=== PATIENT | female | born 1975 | race African-American/Black ===

== ENCOUNTER 2016-11-28 15:53 | Emergency (ER) | payer SELFPAY ==
[~2016-11-28] VITALS: Ht 175.3 cm; Wt 85.9 kg
[2016-11-28 20:09] VITALS: BP 127/84
== END 2016-11-28 20:11 | disposition home or self-care (01) ==
LOC: EMS 15:55
DX: S13.4XXA Sprain of ligaments of cervical spine, initial encounter (principal); S00.83XA Contusion of other part of head, initial encounter; R51 Headache; M62.838 Other muscle spasm; W22.8XXA Striking against or struck by other objects, initial encounter; Y93.89 Activity, other specified; Y92.59 Other trade areas as the place of occurrence of the external cause; Y99.9 Unspecified external cause status
CPT/HCPCS: 70450; 72125; 81025; 99284